=== PATIENT | male | born 1995 | race Caucasian/White ===

== ENCOUNTER → 2022-11-03 09:15 | Outpatient (BNVA) | payer BC, SELFPAY | PROVIDERS: Family Provider Nurse Practitioner Family; PCP Nurse Practitioner Family; Visit Provider Nurse Practitioner Family | DX: M10.9 Gout, unspecified (principal) | CPT/HCPCS: 80048; 84550; 85025; 85651; 86140 ==

== ENCOUNTER 2023-09-23 12:39 | Outpatient (CLI) | payer SELFPAY ==
[2023-09-23 18:18] LABS: Epithelial Count Semen Rare /hpf; PH Semen 7.5 (7.0-8.0); Pathology Referral Yes; Sperm Immotility 10 % (50-60); Sperm Non-Progressive Motility 5 % (5-10); Sperm Progressive Motility 85 % (31-34); Viscosity Semen Droplets; Volume Semen 2.5 mL (2-5); White Blood Count Semen 0-4 /hpf
== END 2023-09-23 12:40 | disposition home or self-care (01) ==
PROVIDERS: Obstetrics & Gynecology; Family Provider Nurse Practitioner Family; PCP Nurse Practitioner Family; Visit Provider Nurse Practitioner Family
DX: N46.9 Male infertility, unspecified (principal)
CPT/HCPCS: 80503; 89320

== ENCOUNTER → 2023-11-04 09:26 | Outpatient (BNVA) | payer OTHER, SELFPAY | PROVIDERS: Family Provider Nurse Practitioner Family; PCP Nurse Practitioner Family; Visit Provider Nurse Practitioner Family | DX: M10.9 Gout, unspecified (principal); F41.9 Anxiety disorder, unspecified; F32.A Depression, unspecified; Z79.899 Other long term (current) drug therapy; Z13.6 Encounter for screening for cardiovascular disorders; M1A.9XX0 Chronic gout, unspecified, without tophus (tophi) | CPT/HCPCS: 80053; 80061; 81003; 82607; 82746; 83036; 84439; 84443; 84481; 84550; 85025 ==